=== PATIENT | female | born 1955 | race Two or more races ===

== ENCOUNTER 2019-04-15 10:33 | Outpatient (CLI) | payer OTHER | END 2019-04-15 10:44 | disposition home or self-care (01) | LOC: SONOGRAMA 10:33 → MAMO-SONO 10:45 | DX: M05.79 Rheumatoid arthritis with rheumatoid factor of multiple sites without organ or systems involvement (principal) ==

== ENCOUNTER 2023-11-09 10:39 | Emergency (ER) | payer OTHER ==
[~2023-11-09] VITALS: Ht 157.5 cm; Wt 77.1 kg
[2023-11-09] MEDS ORDERED: LOSARTAN POTASS50 MG (11:18)
[2023-11-09] MEDS ORDERED: KETOROLAC TROMETHAMINE 60 MG VIAL IM ONE ×2 (11:43→11:45)
[2023-11-09 12:48] LABS: CALCIUM 9.5 mg/dL (8.5-10.1); CREATININE SERUM 0.9 mg/dL (0.55-1.02); GFR 62.45; POTASSIUM 3.5 mEq/L (3.5-5.1)
[2023-11-09 12:50] LABS: HEMATOCRIT 37.9 % (36.0-45.00); HEMOGLOBIN 12.6 g/dL (12.0-15.00); MEAN CELL VOLUME 88.1 fL (80.00-100.00); MEAN CORPUSCULAR HEMOGLOBIN 29.3 pg (27.00-32.0); MEAN CORPUSCULAR HGB CONC 33.2 g/dl (32.0-36.0); PLATELET COUNT 213 K/uL (150-450); RED CELL DISTRIBUTION WIDTH 14.4 % (11.5-14.5)
[2023-11-09 13:26] LABS: URINE APPEARANCE Cloudy; URINE BILIRRUBIN Negative (NEGATIVE); URINE BLOOD Moderate; URINE COLOR Yellow; URINE GLUCOSE Negative (NEGATIVE); URINE KETONE Trace (NEGATIVE); URINE LEUKOCYTE Negative; URINE NITRATE Negative; URINE PROTEIN Trace (NEGATIVE); URINE UROBILINOGEN 0.2 E.U./dl
[2023-11-09 13:29] LABS: URINE BACTERIA 728.1 uL (0.0-1933); URINE EPITHELIAL CELLS 15.9 uL (0.0-38.8); URINE RBC 48.2 uL (0.0-20.8); URINE WBC 9.4 uL (0.0-23.2)
[2023-11-09 13:40] LABS: URINE CAST 0.15 uL (0.0-1.40); URINE CRYSTALS MANY /HPF
[2023-11-09] MEDS ORDERED: TAMSULOSIN HCL 0.4 MG CAP PO ONE ×2 (15:40→15:45)
== END 2023-11-09 16:09 | disposition home or self-care (01) ==
LOC: ER 10:40
PROVIDERS: Emergency Medicine
DX: R10.9 Unspecified abdominal pain (principal); I10 Essential (primary) hypertension; N20.1 Calculus of ureter; N13.39 Other hydronephrosis
CPT/HCPCS: 36415; 74176; 96372; 99284; J1885